=== PATIENT | male | born 1990 | race Caucasian/White ===

== ENCOUNTER 2016-06-02 16:41 | Inpatient (IN) | payer OTHER ==
[~2016-06-02] VITALS: Ht 167.6 cm; Wt 81.2 kg
[2016-06-02] MEDS ORDERED: HYDROMORPHONE 2 MG/ML VIAL. IV ONE ×2 (17:00→17:45)
[2016-06-02] MEDS ORDERED: ONDANSETRON PF 4 MG/2 ML VIAL. IV ONE (17:00)
[2016-06-02] MEDS ORDERED: CEFAZOLIN 1GM IVPB FOR OMNI 50 ML IV ONE ×2 (17:00→17:04)
[2016-06-02] MEDS ORDERED: DIPHTH,PERTUSS(ACELL),TET TOX 0.5 ML DISP.SYRIN. VAX IM ONE ×2 (17:00→17:04)
[2016-06-02] MEDS ORDERED: HYDROMORPHONE 2 MG/ML VIAL. ONE (17:04)
[2016-06-02] MEDS ORDERED: ONDANSETRON PF 4 MG/2 ML VIAL. ONE ×2 (17:04→20:21)
[2016-06-02] MEDS: IV NORMAL SALINE 1000ML BAG 1,000 ML IV SCH ×2 (17:35→23:57)
[2016-06-02] MEDS ORDERED: ONDANSETRON PF 4 MG/2 ML VIAL. IV PRN ×3 (17:45→22:30)
[2016-06-02 17:49] LABS: BASO % 1 % (0-3); CALCIUM 9.1 mg/dL (8.5-10.1); CREATININE 1.1 mg/dL (0.7-1.3); EOS % 1 % (0-3); GFR 79.7; HEMATOCRIT 45.2 % (39.0-53.0); HEMOGLOBIN 14.8 g/dL (13.0-17.5); LYMPH # 2.1 x10^3/uL (1.0-4.8); LYMPH % 24 % (24-48); MEAN CORPUSCULAR HEMOGLOBIN 28 pg (25-35); MEAN CORPUSCULAR HGB CONC 33 g/dL (31-37); MEAN CORPUSCULAR VOLUME 86 fL (79-100); MONO % 8 % (0-9); NEUT % 67 % (31-73); PLATELET COUNT 251 x10^3/uL (140-400); POTASSIUM 3.5 mmol/L (3.5-5.1); RED BLOOD COUNT 5.28 x10^6/uL (4.30-5.70); RED CELL DISTRIBUTION WIDTH 13.5 % (11.5-14.5)
[2016-06-02] MEDS ORDERED: IV RINGERS,LACTATED 1000ML 1,000 ML IV SCH (18:20)
--- NOTE | 2016-06-02 18:21 | PHYS DOC ---
Adult General Chief Complaint Chief Complaint: TRAUMA ACTIVATION HPI HPI Patient is a 26 year old gentleman who presents to the ER today as a trauma activation secondary to a significant laceration to his right pretibial region after being pinned up against the forklift and a silver-fork at work. Patient has no past mental history. History of hypertension diabetes liver longer kidney problems. Patient's tetanus status is not up-to-date. Patient reports last tetanus was greater than 10 years. She reports no other Komori pain secondary to this injury. She reports she tried a bleed after the fall and was unable to walk to his car. Patient reports that he feels like his lower extremities/foot is floppy. Patient reports poor control of motion to his foot. Patient's physical exam is significant for a large 20 cm laceration to the right pretibial region distally. The laceration extends from the medial aspect of his ankle to the mid tibial region. Laceration is deep. Bone is visualized. There is no obvious bony deformity noted. Patient does have what appears to be superficial muscle involvement. Patient is neurovascularly intact. Patient has excellent capillary refill. Patient's DP and PT are 2+. Patient does have flexion and extension of his foot. Patient's sensation is intact to light touch and pinprick. Patient has no tenderness to palpation to his knee with no tenderness in his lateral or medial aspect. There is no joint effusion to knee. X-ray reveals a comminuted fracture of his medial and lateral malleolus on the right. There is no fracture noted of the tibial shaft. A/P this is a 26-year-old gentleman who presents to the ER with an open fracture of his left ankle. Case was discussed with the trauma attending after trauma activation was initiated. Dr. Clay was was notified of the current plan and he is in agreement. The case was discussed with Dr. Hernandez who is on- call for us here at [place] for orthopedics and she is in agreement with the current regimen of the patient. Dr. Hernandez has agreed to assist us with further care of this patient. Dr. Hernandez will arrange for evaluation for irrigation and closure of the wound. She also evaluate him for his bimalleolar fracture. Was given 1 g Ancef IM as well as 2 doses of IV Dilaudid for pain management. Patient was given tetanus. Patient otherwise clinically and hemodynamically stable. Review of Systems Review of Systems Constitutional: Denies fever or chills [] Eyes: Denies change in visual acuity, redness, or eye pain [] HENT: Denies nasal congestion or sore throat [] Respiratory: Denies cough or shortness of breath [] Cardiovascular: No additional information not addressed in HPI [] GI: Denies abdominal pain, nausea, vomiting, bloody stools or diarrhea [] All other review systems are negative except as documented in the history of present illness. Current Medications Current Medications Current Medications Medications (Trade) Dose Ordered Sig/Christi Start Time Stop Time Status Last Admin Dose Admin Cefazolin Sodium (Ancef 1gm Ivpb For Omni) 50 ml @ 100 mls/hr 1X ONCE 06/02/16 17:00 06/02/16 17:29 DC 06/02/16 17:07 100 MLS/HR Diphtheria/ Tetanus/Acell Pertussis 0.5 ml 0.5 ml ONCE ONCE 06/02/16 17:00 06/02/16 17:06 DC 06/02/16 17:10 0.5 ML Fentanyl Citrate 50 mcg 50 mcg PRN Q1HR PRN 06/02/16 17:45 06/03/16 17:44 Hydromorphone HCl (Dilaudid) 1 mg 1X ONCE 06/02/16 17:45 06/02/16 17:46 DC 06/02/16 17:48 1 MG Ondansetron HCl (Zofran) 4 mg PRN Q8HRS PRN 06/02/16 17:45 06/03/16 17:44 Sodium Chloride (Iv Sodium Chloride 0.9% 1000ml Bag) 1,000 ml @ 125 mls/hr Q8H 06/02/16 17:35 06/03/16 17:34 Allergies Allergies Allergies Coded Allergies Type Severity Reaction Last Updated Verified No Known Drug Allergies 06/02/16 No Physical Exam Physical Exam Constitutional: Well developed, well nourished, no acute distress, non-toxic appearance. [] HENT: Normocephalic, atraumatic, bilateral external ears normal, oropharynx moist, no oral exudates, nose normal. [] Eyes: PERRLA, EOMI, conjunctiva normal, no discharge. [] Neck: Normal range of motion, no tenderness, supple, no stridor. [] Cardiovascular:Heart rate regular rhythm, no murmur [] Lungs & Thorax: Bilateral breath sounds clear to auscultation [] Abdomen: Bowel sounds normal, soft, no tenderness, no masses, no pulsatile masses. [] Skin: Warm, dry, no erythema, no rash. [] Back: No tenderness, no CVA tenderness. [] Extremities: See above Neurologic: See above Psychologic: Affect normal, judgement normal, mood normal. [] Current Patient Data Vital Signs Vital Signs Date Time Temp Pulse Resp B/P Pulse Ox O2 Delivery O2 Flow Rate FiO2 06/02/16 17:48 13 100 Room Air Lab Values Laboratory Tests Test 06/02/16 16:50 White Blood Count 9.0x10^3/uL (4.0-11.0) Red Blood Count 5.28x10^6/uL (4.30-5.70) Hemoglobin 14.8g/dL (13.0-17.5) Hematocrit 45.2% (39.0-53.0) Mean Corpuscular Volume 86fL (79-100) Mean Corpuscular Hemoglobin 28pg (25-35) Mean Corpuscular Hemoglobin Concent 33g/dL (31-37) Red Cell Distribution Width 13.5% (11.5-14.5) Platelet Count 251x10^3/uL (140-400) Neutrophils (%) (Auto) 67% (31-73) Lymphocytes (%) (Auto) 24% (24-48) Monocytes (%) (Auto) 8% (0-9) Eosinophils (%) (Auto) 1% (0-3) Basophils (%) (Auto) 1% (0-3) Neutrophils # (Auto) 6.0x10^3uL (1.8-7.7) Lymphocytes # (Auto) 2.1x10^3/uL (1.0-4.8) Monocytes # (Auto) 0.7x10^3/uL (0.0-1.1) Eosinophils # (Auto) 0.1x10^3/uL (0.0-0.7) Basophils # (Auto) 0.0x10^3/uL (0.0-0.2) Sodium Level 144mmol/L (136-145) Potassium Level 3.5mmol/L (3.5-5.1) Chloride Level 105mmol/L (98-107) Carbon Dioxide Level 27mmol/L (21-32) Anion Gap 12 (6-14) Blood Urea Nitrogen 16mg/dL (8-26) Creatinine 1.1mg/dL (0.7-1.3) Estimated GFR (Cockcroft-Gault) 79.7 Glucose Level 97mg/dL (70-99) Calcium Level 9.1mg/dL (8.5-10.1) Laboratory Tests 06/02/16 16:50 Laboratory Tests 06/02/16 16:50 EKG EKG [] Radiology/Procedures Radiology/Procedures Critical care time of 35 minutes reutilized and treatment and management of this patient's open fracture. There is concern for possible loss of limb given the mechanism of injury.\ Course & Med Decision Making Course & Med Decision Making Pertinent Labs and Imaging studies reviewed. (See chart for details) [] Dragon Disclaimer Dragon Disclaimer This electronic medical record was generated, in whole or in part, using a voice recognition dictation system. Departure Departure Impression: Primary Impression: Open fracture Disposition: 09 ADMITTED INPATIENT Admitting Physician: Gertrudis Daniel Condition: GUARDED Referrals: NO PCP (PCP) INDIGO BAZZI MD Jun 02, 2016 18:21
[2016-06-02] MEDS ORDERED: MORPHINE SULFATE 2 MG/ML DISP.SYRIN. IV PRN (18:30)
[2016-06-02] MEDS ORDERED: HYDROMORPHONE 2 MG/ML VIAL. IV PRN ×2 (18:30→22:30)
[2016-06-02] MEDS ORDERED: LIDOCAINE 1% 1 ML SYRINGE. ID PRN (18:30)
[2016-06-02] MEDS ORDERED: PROCHLORPERAZINE 10 MG/2 ML VIAL. IV PRN (18:30)
[2016-06-02] MEDS ORDERED: FENTANYL PF 100 MCG/2 ML VIAL. IV PRN ×2 (18:30→22:30)
[2016-06-02] MEDS ORDERED: BUPIVACAINE-EPI 0.25%-1:200000 50 ML VIAL. ONE (18:36)
[2016-06-02] MEDS ORDERED: FENTANYL PF 250 MCG/5 ML VIAL. ONE (18:50)
[2016-06-02] MEDS ORDERED: PROPOFOL 20 ML IV ONE (18:59)
[2016-06-02] MEDS ORDERED: CEFAZOLIN 1GM IVPB FOR OMNI. IV ONE (19:00)
[2016-06-02] MEDS ORDERED: LIDOCAINE 2% 100 MG/5 ML DISP.SYRIN. ONE (19:00)
--- NOTE | 2016-06-02 19:02 | PDOC2 ---
CONSULT Date of Consult Date of Consult DATE: 06/02/16 TIME: 18:50 Reason for Consult Reason for Consult: right tibia laceration and ankle fracture Referring Physician Referring Physician: ER Identification/Chief Complaint Chief Complaint R leg pain Source Source: Chart review, Patient History of Present Illness Reason for Visit: The patient is a 26 year old male who presents today with a chief complaint of right leg pain after he was injured on the job. He states that he hopped off of a forklift and somehow his leg was trapped and crushed. He is neuro intact, and has not had anything to eat or drink since the incident. He was given antibiotics and a tetanus update in the ER. He smokes 1/2 pack per day. Past Medical History Past Medical History no pertinent history per patient Family History Family History no pertinent family history per patient Social History <1 pack per day ALCOHOL: social Drugs: None Lives: with Family Domestic Violence: Neg Current Problem List Problem List Problems Medical Problems: (1) Open fracture Status: Acute Current Medications Current Medications Current Medications Diphtheria/ Tetanus/Acell Pertussis 0.5 ml 0.5 ml ONCE ONCE VAX IM Last administered on 06/02/16 17:10; Start 06/02/16 at 17:00; Stop 06/02/16 at 17:06 ; Status DC Cefazolin Sodium (Ancef 1gm Ivpb For Omni) 50 ml @ 100 mls/hr 1X ONCE IV Last administered on 06/02/16 17:07; Start 06/02/16 at 17:00; Stop 06/02/16 at 17:29; Status DC Hydromorphone HCl (Dilaudid) 0.5 mg 1X ONCE IV Last administered on 06/02/16 17:08; Start 06/02/16 at 17:00; Stop 06/02/16 at 17:06; Status DC Ondansetron HCl (Zofran) 4 mg 1X ONCE IV Last administered on 06/02/16 17:08 ; Start 06/02/16 at 17:00; Stop 06/02/16 at 17:06; Status DC Ondansetron HCl (Zofran) 4 mg PRN Q8HRS PRN IV NAUSEA/VOMITING; Start 06/02/16 at 17:45; Stop 06/03/16 at 17:44 Fentanyl Citrate 50 mcg 50 mcg PRN Q1HR PRN IV PAIN; Start 06/02/16 at 17:45; Stop 06/03/16 at 17:44 Sodium Chloride (Iv Sodium Chloride 0.9% 1000ml Bag) 1,000 ml @ 125 mls/hr Q8H IV ; Start 06/02/16 at 17:35; Stop 06/03/16 at 17:34 Hydromorphone HCl (Dilaudid) 1 mg 1X ONCE IV Last administered on 06/02/16t 17 :48; Start 06/02/16 at 17:45; Stop 06/02/16 at 17:46; Status DC Ondansetron HCl (Zofran) 4 mg PRN Q6HRS PRN IV Nausea; Start 06/02/16 at 18:30 ; Stop 06/03/16 at 18:29 Fentanyl Citrate (Fentanyl 2ml Vial) 25 mcg PRN Q5MIN PRN IV MILD PAIN; Start 06/02/16 at 18:30; Stop 06/03/16 at 18:29 Fentanyl Citrate (Fentanyl 2ml Vial) 50 mcg PRN Q5MIN PRN IV MODERATE PAIN; Start 06/02/16 at 18:30; Stop 06/03/16 at 18:29 Morphine Sulfate 1 mg 1 mg PRN Q10MIN PRN IV SEVERE PAIN; Start 06/02/16 at 18: 30; Stop 06/03/16 at 18:29 Lactated Ringer's (Iv Lactated Ringers) 1,000 ml @ 30 mls/hr Q24H IV ; Start at 18:20; Stop 06/03/16 at 06:19 Lidocaine HCl 2 ml 1X PRN PRN ID IV START; Start 06/02/16 at 18:30; Stop at 18:29 Hydromorphone HCl (Dilaudid) 0.5 mg PRN Q10MIN PRN IV SEV PAIN,Second choice; Start 06/02/16 at 18:30; Stop 06/03/16 at 18:29 Prochlorperazine Edisylate (Compazine) 5 mg PACU PRN PRN IV NAUSEA; Start 06/02 at 18:30; Stop 06/03/16 at 18:29 Allergies Allergies: Coded Allergies: No Known Drug Allergies (Unverified , 06/02/16) ROS General: No: Appetite, Chills, Fatigue, Malaise, Night Sweats, Other PSYCHOLOGICAL ROS: No: Anxiety, Behavioral Disorder, Concentration difficultie , Decreased libido, Depression, Disorientation, Hallucinations, Hostility, Irritablity, Memory difficulties, Mood Swings, Obsessive thoughts, Other, Physical abuse, Sexual abuse, Sleep disturbances, Suicidal ideation Eyes: No Blurry vision, No Decreased vision, No Double vision, No Dry eyes, No Excessive tearing, No Eye Pain, No Itchy Eyes, No Loss of vision, No Other, No Photophobia, No Scotomata, No Uses contacts, No Uses glasses HEENT: No: Epistaxis, Heacaches, Hearing change, Nasal congestion, Nasal discharge, Oral lesions, Other, Sinus pain, Sneezing, Snoring, Sore Throat, Tinnitus, Vertigo, Visual Changes, Vocal changes ALLERGY AND IMMUNOLOGY: No: Hives, Insect Bite Sensitivity, Itchy/Watery Eyes, Nasal Congestion, Other, Post Nasal Drip, Seasonal Allergies Hematological and Lymphatic: No: Bleeding Problems, Blood Clots, Blood Transfusions, Brusing, Night Sweats, Other, Pallor, Swollen Lymph Nodes ENDOCRINE: No: Breast Changes, Galactorrhea, Hair Pattern Changes, Hot Flashes , Malaise/lethargy, Mood Swings, Other, Palpitations, Polydipsia/polyuria, Skin Changes, Temperature Intolerance, Unexpected Weight Changes Breast: No New/Changing Breast Lumps, No Nipple changes, No Nipple discharge, No Other Respiratory: No: Cough, Hemoptysis, Orthopnea, Other, Pleuritic Pain, SOB with excertion, Shortness of breath, Sputum Changes, Stridor, Tachypnea, Wheezing Musculoskeletal: Yes Gait Disturbance, Yes Joint Pain, Yes Muscle Pain, Yes Pain In: (right lower extremity), No Joint Stiffness, No Joint Swelling, No Muscular Weakness, No Other, No Swelling In: Physical Exam Physical Exam General Physical Exam: In no apparent distress. The patient appears their stated age and is oriented to person, place, and time. He presents with his significant other today. RIGHT LOWR EXTREMITY: dressing intact with sanginous drainage. Minimal swelling about the foot. 2+ DP/Post tib pulse. +Ehl/fhl. ta/ posterior tibialis. General: Alert, Oriented X3, Cooperative, No acute distress HEENT: Atraumatic, EOMI, Mucous membr. moist/pink Lungs: Normal air movement Extremities: No cyanosis, Normal pulses Psych/Mental Status: Mental status NL Vitals VITALS Vital Signs Date Time Temp Pulse Resp B/P Pulse Ox O2 Delivery O2 Flow Rate FiO2 06/02/16 17:48 13 100 Room Air Labs Labs Laboratory Tests Test 06/02/16 16:50 White Blood Count 9.0x10^3/uL (4.0-11.0) Red Blood Count 5.28x10^6/uL (4.30-5.70) Hemoglobin 14.8g/dL (13.0-17.5) Hematocrit 45.2% (39.0-53.0) Mean Corpuscular Volume 86fL (79-100) Mean Corpuscular Hemoglobin 28pg (25-35) Mean Corpuscular Hemoglobin Concent 33g/dL (31-37) Red Cell Distribution Width 13.5% (11.5-14.5) Platelet Count 251x10^3/uL (140-400) Neutrophils (%) (Auto) 67% (31-73) Lymphocytes (%) (Auto) 24% (24-48) Monocytes (%) (Auto) 8% (0-9) Eosinophils (%) (Auto) 1% (0-3) Basophils (%) (Auto) 1% (0-3) Neutrophils # (Auto) 6.0x10^3uL (1.8-7.7) Lymphocytes # (Auto) 2.1x10^3/uL (1.0-4.8) Monocytes # (Auto) 0.7x10^3/uL (0.0-1.1) Eosinophils # (Auto) 0.1x10^3/uL (0.0-0.7) Basophils # (Auto) 0.0x10^3/uL (0.0-0.2) Sodium Level 144mmol/L (136-145) Potassium Level 3.5mmol/L (3.5-5.1) Chloride Level 105mmol/L (98-107) Carbon Dioxide Level 27mmol/L (21-32) Anion Gap 12 (6-14) Blood Urea Nitrogen 16mg/dL (8-26) Creatinine 1.1mg/dL (0.7-1.3) Estimated GFR (Cockcroft-Gault) 79.7 Glucose Level 97mg/dL (70-99) Calcium Level 9.1mg/dL (8.5-10.1) Laboratory Tests Test 06/02/16 16:50 White Blood Count 9.0x10^3/uL (4.0-11.0) Red Blood Count 5.28x10^6/uL (4.30-5.70) Hemoglobin 14.8g/dL (13.0-17.5) Hematocrit 45.2% (39.0-53.0) Mean Corpuscular Volume 86fL (79-100) Mean Corpuscular Hemoglobin 28pg (25-35) Mean Corpuscular Hemoglobin Concent 33g/dL (31-37) Red Cell Distribution Width 13.5% (11.5-14.5) Platelet Count 251x10^3/uL (140-400) Neutrophils (%) (Auto) 67% (31-73) Lymphocytes (%) (Auto) 24% (24-48) Monocytes (%) (Auto) 8% (0-9) Eosinophils (%) (Auto) 1% (0-3) Basophils (%) (Auto) 1% (0-3) Neutrophils # (Auto) 6.0x10^3uL (1.8-7.7) Lymphocytes # (Auto) 2.1x10^3/uL (1.0-4.8) Monocytes # (Auto) 0.7x10^3/uL (0.0-1.1) Eosinophils # (Auto) 0.1x10^3/uL (0.0-0.7) Basophils # (Auto) 0.0x10^3/uL (0.0-0.2) Sodium Level 144mmol/L (136-145) Potassium Level 3.5mmol/L (3.5-5.1) Chloride Level 105mmol/L (98-107) Carbon Dioxide Level 27mmol/L (21-32) Anion Gap 12 (6-14) Blood Urea Nitrogen 16mg/dL (8-26) Creatinine 1.1mg/dL (0.7-1.3) Estimated GFR (Cockcroft-Gault) 79.7 Glucose Level 97mg/dL (70-99) Calcium Level 9.1mg/dL (8.5-10.1) Images Images Xrays of the right tibia reveal subcutaneous gas consistent with soft tissue disruption, and a transverse fibula and medial malleolus fracture. Assessment/Plan Assessment/Plan The patient is a 26 year old male with a right anterior tibial laceration and transverse bimalleolar ankle fracture. The plan is for urgent I & D, OPEN REDUCTION INTERNAL FIXATION if possible. HE has received abx and tetanus. We will continue abx for 24 hours after he is closed. ELENA ELIZONDO MD Jun 02, 2016 19:01
[2016-06-02] MEDS ORDERED: DEXAMETHASONE SOD PHOS 20 MG/5 ML VIAL. ONE (20:21)
[2016-06-02] MEDS ORDERED: SEVOFLURANE 61 TO 120 MINUTES. IH ONE (20:44)
[2016-06-02] MEDS: FENTANYL PF 100 MCG/2 ML VIAL. IV PRN ×4 (22:26→22:48)
[2016-06-02] MEDS: IV 1/2 NORMAL SALINE 1,000 ML IV SCH (22:29)
[2016-06-02] MEDS ORDERED: POLYETHYLENE GLYCOL 3350 17 GM PACKET. PO PRN (22:30)
[2016-06-02] MEDS ORDERED: TRAMADOL 50 MG TABLET. PO PRN (22:30)
[2016-06-02] MEDS ORDERED: DEXTROSE 50% 25 GM / 50ML DISP.SYRIN. IV PRN (22:30)
[2016-06-02] MEDS ORDERED: OXYCODONE IR 5 MG TABLET. PO PRN (22:30)
--- NOTE | 2016-06-02 22:33 | ACF ---
Admission Forms Criteria MUSCULOSKELETAL DISEASE GRG Clinical Indications for Admission to Inpatient Care (Place 'X' for any and all applicable criteria): Hospital admission is needed for appropriate care of the patient because of ANY ONE of the following: [X]I. Fracture, dislocation, or other musculoskeletal injury requiring inpatient care(medical) as indicated by ANY ONE of the following(4)(5)(6)(7) [ ]a) Vertebral fracture requiring observation for instability or neurologic compromise (8) [ ]b) Compartment syndrome (proven or cannot be ruled out during observation level of care) (9) [ ]c) Limb-threatening injury [X]d) Major injury requiring inpatient stabilization such as traction initiation or external fixation before internal fixation or closure of complex or open fracture [ ]e) Major injury requiring inpatient treatment after emergency or observation level care (as appropriate) [ ]f) Severe pain requiring acute inpatient management [ ]II. Newly diagnosed or suspected bone, joint, or orthopedic device infection (e.g., osteomyelitis, septic arthritis) needing ANY ONE of the following(1)(2)(3) [ ]a) IV antibiotics that cannot be initiated in other than inpatient setting (e.g., patient too unstable or home infusion not available) [ ]b) Device removal or replacement [ ]c) Bone or soft tissue debridement [ ]d) Joint drainage (drain placement or repetitive aspirations) [ ]III. Severe rheumatologic disease (e.g., systemic lupus erythematosus, rheumatoid arthritis) with complications or comorbidities (Also use Optimal Recovery Care Criteria or General Recovery Criteria as appropriate on the basis of predominant condition), including ANY ONE of the following(10 )(11)(12)(13) [ ]a) Severe infection (e.g., HISTORICAL SOCIETY DIRECTOR infection, sepsis) (14) [ ]b) Respiratory complications, including ANY ONE of the following: [ ]i) Pleural effusion with respiratory compromise [ ]ii) Pulmonary hypertension with congestive failure [ ]iii) Respiratory failure [ ]iv) Pulmonary hemorrhage (15) [ ]c) Hematologic disease, including ANY ONE of the following: [ ]i) Coagulopathy with bleeding [ ]ii) Thrombosis with hypercoagulable state [ ]iii) Thrombotic thrombocytopenic purpura [ ]d) Cerebritis with seizures, psychosis, or other severe abnormalities [ ]e) Vertebral destruction with monitoring needed for cervical myelopathy& possible respiratory compromise [ ]f) Exacerbation that requires inpatient treatment (e.g., intravenous immunosuppression) (16) [ ]g) Acute renal failure [ ]IV. Severe vasculitis with complications or comorbidities (Also use Optimal Recovery Care Criteria or General Recovery Criteria as appropriate on the basis of predominant condition), including ANY ONE of the following(11)(12)(17)(18)(19)(20) [ ]a) HISTORICAL SOCIETY DIRECTOR vasculitis with seizures, psychosis, or other severe abnormalities (22) [ ]b) Renal failure (16) [ ]c) Pulmonary hemorrhage (15) [ ]d) Cerebral infarction [ ]e) Gastrointestinal ischemia [ ]f) Gangrene or threatened amputation [ ]g) Exacerbation that requires inpatient treatment (e.g., intravenous immunosuppression) (19)(21) [ ]V. Severe myopathy as indicated by ANY ONE of the following (28)(29) [ ]a) New onset of airway compromise or inability to swallow [ ]b) Respiratory deterioration with observation needed for impending respiratory failure [ ]c) Exacerbation that requires inpatient treatment (e.g., intravenous immunosuppression) [ ]. Severe gout (crystal arthropathy) as indicated by ANY ONE of the following (23)(24) [ ]a) Severe pain requiring acute inpatient management [ ]b) Exacerbation that requires inpatient treatment (e.g., intravenous treatment) [ ]VII.Rhabdomyolysis and ANY ONE of the following (25)(26)(27) [ ]a) Acute renal failure [ ]b) Need for intravenous hydration after emergency or observation level care (as appropriate) [ ]c) Inability to maintain oral hydration [ ]d) Change in mental status [ ]e) Electrolyte abnormality that remains after emergency or observation level care (as appropriate) [ ]VIII Post amputation complication, as indicated by ANY ONE of the following [ ]a) Infection [ ]b) Dehiscence [ ]c) Myodesis failure [ ]IX. Severe pain requiring acute inpatient management as indicated by ALL of the following (30)(31)(32) [ ]a) Continuous or frequent (e.g., every 2 to 4 hrs) parenteral analgesics required [A] [ ]b) Rapid improvement expected from treatment or acute intervention ( e.g., surgery, anesthesia procedure[B] [ ]X. Musculoskeletal Disease and ALL of the following: [ ]a) Symptom or finding for which emergency and observation care have failed or are not considered appropriate (Use General Criteria: Observation Care as appropriate) [ ]b) Presence of ANY ONE of the following [ ]i) A General Admission Criteria [ ]ii) A Pediatric General Admission Criteria The original [facility] content created by [facility] has been revised. The portions of the content which have been revised are identified through the use of italic text or in bold, and [facility] has neither reviewed nor approved the modified material. All other unmodified content is copyright [facility]. Please see references footnoted in the original [facility] edition 2016 Admission Criteria Met?: Yes NEISHA EVANS Jun 02, 2016 22:33
--- NOTE | 2016-06-02 22:42 | PDOC ---
BRIEF OPERATIVE NOTE Date: Jun 02, 2016 Pre-Op Diagnosis Right trimalleolar ankle fracture, right leg laceration Post-Op Diagnosis same Procedure Performed Right irrigation and debridement of laceration, complex closure of three layers of tissue. ORIF trimalleolar ankle fracture without manipulation of the posterior malleolus. Surgeon Elena Elizondo MD Chemistry Laboratory Technician none Anesthesia Type: General Blood Loss 75 cc Findings 12 inch laceration on the anteromedial surface of the tibia down to bone, saphenous vein and nerve were intact and visualized. transverse fracture of the lateral malleolus with some comminution, oblique fracture of the medial malleolus with comminution. mildly displaced posterior malleolus fracture. Complications none Additional Remarks Pt is to be nwb on his rle, in a plaster splint. nvi post-op. continue to monitor for nv status and compartment syndrome. pain control dvt ppx antibiotics for 24 hours will fu 7-10 days in office for suture removal ELENA ELIZONDO MD Jun 02, 2016 22:42
[2016-06-02] MEDS ORDERED: NICOTINE POLACRILEX 2MG GUM PACKAGE of 12. BC PRN (22:45)
[2016-06-02] MEDS ORDERED: NICOTINE 14MG PATCH. TD PRN (22:45)
[2016-06-02] MEDS ORDERED: POTASSIUM CHLORIDE 20 MEQ TABLET.ER. PO ONE (23:00)
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
[2016-06-02] MEDS ORDERED: DOCUSATE SODIUM 100 MG CAPSULE PO PRN (23:15)
[2016-06-02 23:30] VITALS: BP 116/64
[2016-06-02 23:45] VITALS: BP 115/72
[2016-06-02] MEDS: CEFAZOLIN SODIUM 1 GM in IV NORMAL SALINE 50ML 50 ML IV SCH (23:52)
[2016-06-03] VITALS (7 sets, daily range): BP systolic 100–116; BP diastolic 49–68
[2016-06-03] MEDS: FENTANYL PF 100 MCG/2 ML VIAL. IV PRN ×2 (00:18→09:31)
[2016-06-03] MEDS ORDERED: DEXT20CA7 PO (01:29)
[2016-06-03] MEDS: KETOROLAC 15 MG/ML VIAL. IV PRN ×2 (02:43→14:29)
[2016-06-03] MEDS: OXYCODONE IR 5 MG TABLET. PO PRN ×3 (04:48→17:20)
[2016-06-03] MEDS: CEFAZOLIN SODIUM 1 GM in IV NORMAL SALINE 50ML 50 ML IV SCH ×2 (04:51→11:51)
[2016-06-03] MEDS ORDERED: MAGNESIUM HYDROXIDE 2,400 MG/30 ML ORAL.SUSP. PO PRN (06:00)
--- NOTE | 2016-06-03 08:35 | RAD ---
Right ankle, 3 views, 06/02/2016: History: Injury There are comminuted fractures of the medial and lateral malleoli. There is very little displacement at those fracture sites. There is moderate streaky gas in the soft tissues about the ankle and lower leg compatible with an open wound. No ankle dislocation is evident. Portable right tibia and fibula, 2 views, 06/02/2016: No additional fracture of the proximal lower leg is evident. Right foot, 3 views, 06/02/2016: No additional fracture or dislocation is identified. IMPRESSION: Acute comminuted fractures of the medial and lateral malleoli.
[2016-06-03] MEDS ORDERED: DOCUSATE SODIUM 100 MG CAPSULE PO SCH (09:00)
[2016-06-03] MEDS ORDERED: CHOLECALCIFEROL (VITAMIN D3) 1,000 UNIT TABLET PO SCH (09:00)
[2016-06-03] MEDS ORDERED: MULTIVITAMIN with MINERAL TABLET. PO SCH (09:00)
[2016-06-03] MEDS ORDERED: SENNOSIDES/DOCUSATE 8.6/50MG TABLET. PO SCH (09:00)
[2016-06-03] MEDS ORDERED: POLYETHYLENE GLYCOL 3350 17 GM PACKET. PO SCH (09:00)
[2016-06-03] MEDS: IV NORMAL SALINE 1000ML BAG 1,000 ML IV SCH (09:28)
[2016-06-03] MEDS: ACETAMINOPHEN 500 MG TABLET PO SCH ×2 (09:31→14:29)
[2016-06-03] MEDS: FERROUS SULFATE 325 MG TABLET PO SCH ×2 (09:32→17:19)
[2016-06-03] MEDS ORDERED: OXYC-323 PO (10:36)
[2016-06-03] MEDS ORDERED: DOCU-27 PO (10:36)
[2016-06-03] MEDS ORDERED: CHOLECALCIFEROL (VITAMIN D3) 5,000 UNIT CAPSULE PO SCH (11:00)
[2016-06-03] MEDS: IV 1/2 NORMAL SALINE 1,000 ML IV SCH (11:49)
--- NOTE | 2016-06-03 12:59 | PDOC ---
PROGRESS NOTES Subjective Subjective Problems overnight: No acute issues. Saw the patient this am and he stated his pain was relatively well controlled on oral pain meds. wondering when he can go home. He was complaining of the splint being too tight around his ankle so I unwrapped it and loosened. He has since worked with therapy with no problems. He is receiving antibiotics. He is keeping his leg elevated. Objective Vital Signs Vital Signs Date Time Temp Pulse Resp B/P Pulse Ox O2 Delivery O2 Flow Rate FiO2 06/03/16 11:50 18 Room Air 06/03/16 11:00 98.0 68 109/57 99 98.0 06/02/16 22:31 10.0 Physical Exam RLE: in splint, elevated on a pillow. toes cool to the touch, brisk cap refill. no numbness, tingling, or parasthesias. no pain with passive stretch. Labs Laboratory Tests Test 06/02/16 16:50 White Blood Count 9.0x10^3/uL (4.0-11.0) Red Blood Count 5.28x10^6/uL (4.30-5.70) Hemoglobin 14.8g/dL (13.0-17.5) Hematocrit 45.2% (39.0-53.0) Mean Corpuscular Volume 86fL (79-100) Mean Corpuscular Hemoglobin 28pg (25-35) Mean Corpuscular Hemoglobin Concent 33g/dL (31-37) Red Cell Distribution Width 13.5% (11.5-14.5) Platelet Count 251x10^3/uL (140-400) Neutrophils (%) (Auto) 67% (31-73) Lymphocytes (%) (Auto) 24% (24-48) Monocytes (%) (Auto) 8% (0-9) Eosinophils (%) (Auto) 1% (0-3) Basophils (%) (Auto) 1% (0-3) Neutrophils # (Auto) 6.0x10^3uL (1.8-7.7) Lymphocytes # (Auto) 2.1x10^3/uL (1.0-4.8) Monocytes # (Auto) 0.7x10^3/uL (0.0-1.1) Eosinophils # (Auto) 0.1x10^3/uL (0.0-0.7) Basophils # (Auto) 0.0x10^3/uL (0.0-0.2) Sodium Level 144mmol/L (136-145) Potassium Level 3.5mmol/L (3.5-5.1) Chloride Level 105mmol/L (98-107) Carbon Dioxide Level 27mmol/L (21-32) Anion Gap 12 (6-14) Blood Urea Nitrogen 16mg/dL (8-26) Creatinine 1.1mg/dL (0.7-1.3) Estimated GFR (Cockcroft-Gault) 79.7 Glucose Level 97mg/dL (70-99) Calcium Level 9.1mg/dL (8.5-10.1) Laboratory Tests Test 06/02/16 16:50 White Blood Count 9.0x10^3/uL (4.0-11.0) Red Blood Count 5.28x10^6/uL (4.30-5.70) Hemoglobin 14.8g/dL (13.0-17.5) Hematocrit 45.2% (39.0-53.0) Mean Corpuscular Volume 86fL (79-100) Mean Corpuscular Hemoglobin 28pg (25-35) Mean Corpuscular Hemoglobin Concent 33g/dL (31-37) Red Cell Distribution Width 13.5% (11.5-14.5) Platelet Count 251x10^3/uL (140-400) Neutrophils (%) (Auto) 67% (31-73) Lymphocytes (%) (Auto) 24% (24-48) Monocytes (%) (Auto) 8% (0-9) Eosinophils (%) (Auto) 1% (0-3) Basophils (%) (Auto) 1% (0-3) Neutrophils # (Auto) 6.0x10^3uL (1.8-7.7) Lymphocytes # (Auto) 2.1x10^3/uL (1.0-4.8) Monocytes # (Auto) 0.7x10^3/uL (0.0-1.1) Eosinophils # (Auto) 0.1x10^3/uL (0.0-0.7) Basophils # (Auto) 0.0x10^3/uL (0.0-0.2) Sodium Level 144mmol/L (136-145) Potassium Level 3.5mmol/L (3.5-5.1) Chloride Level 105mmol/L (98-107) Carbon Dioxide Level 27mmol/L (21-32) Anion Gap 12 (6-14) Blood Urea Nitrogen 16mg/dL (8-26) Creatinine 1.1mg/dL (0.7-1.3) Estimated GFR (Cockcroft-Gault) 79.7 Glucose Level 97mg/dL (70-99) Calcium Level 9.1mg/dL (8.5-10.1) Imaging Xrays of the right ankle, intraop reveal near anatomic alignment of his bimalleolar ankle fracture. Assessment Assessment POD# 1 S/P I &D right ankle fracture and laceration debridement Problems: (1) Open fracture Plan Plan of Care -The patient is receiving 24 hours of IV antibiotics per open fracture protocol. He will be done with those at 10 pm this evening. -He will need to go on 325 mg of ASA EC daily for dvt ppx while immoblized -NWB on the RLE -He is to keep the leg elevated as much as possible with ice. -He was given return to care instructions for signs and symptoms of infection, compartment syndrome, Dvt, or PE. -He was given pain medication and stool softner. ELENA ELIZONDO MD Jun 03, 2016 12:59
[2016-06-03] MEDS ORDERED: OXYC10TA PO (13:02)
--- NOTE | 2016-06-03 15:41 | PDOC3 ---
Discharge Summary Visit Information Date of Admission: Jun 02, 2016 Date of Discharge: Jun 03, 2016 Admitting Diagnosis: ankle fracture Final Diagnosis right ankle fracture, open w/ laceration crush injury at work with forklift, ongoing pain right ankle and foot, s/p hardware placed tobaccoism, plans cessation Problems Medical Problems: (1) Open fracture Status: Acute Brief Hospital Course Allergies Allergies Coded Allergies Type Severity Reaction Last Updated Verified No Known Drug Allergies 06/02/16 No Vital Signs Vital Signs Date Time Temp Pulse Resp B/P Pulse Ox O2 Delivery O2 Flow Rate FiO2 06/03/16 13:00 16 Room Air 06/03/16 11:00 98.0 68 109/57 99 98.0 06/02/16 22:31 10.0 Lab Results Laboratory Tests Test 06/02/16 16:50 White Blood Count 9.0x10^3/uL (4.0-11.0) Red Blood Count 5.28x10^6/uL (4.30-5.70) Hemoglobin 14.8g/dL (13.0-17.5) Hematocrit 45.2% (39.0-53.0) Mean Corpuscular Volume 86fL (79-100) Mean Corpuscular Hemoglobin 28pg (25-35) Mean Corpuscular Hemoglobin Concent 33g/dL (31-37) Red Cell Distribution Width 13.5% (11.5-14.5) Platelet Count 251x10^3/uL (140-400) Neutrophils (%) (Auto) 67% (31-73) Lymphocytes (%) (Auto) 24% (24-48) Monocytes (%) (Auto) 8% (0-9) Eosinophils (%) (Auto) 1% (0-3) Basophils (%) (Auto) 1% (0-3) Neutrophils # (Auto) 6.0x10^3uL (1.8-7.7) Lymphocytes # (Auto) 2.1x10^3/uL (1.0-4.8) Monocytes # (Auto) 0.7x10^3/uL (0.0-1.1) Eosinophils # (Auto) 0.1x10^3/uL (0.0-0.7) Basophils # (Auto) 0.0x10^3/uL (0.0-0.2) Sodium Level 144mmol/L (136-145) Potassium Level 3.5mmol/L (3.5-5.1) Chloride Level 105mmol/L (98-107) Carbon Dioxide Level 27mmol/L (21-32) Anion Gap 12 (6-14) Blood Urea Nitrogen 16mg/dL (8-26) Creatinine 1.1mg/dL (0.7-1.3) Estimated GFR (Cockcroft-Gault) 79.7 Glucose Level 97mg/dL (70-99) Calcium Level 9.1mg/dL (8.5-10.1) Laboratory Tests Test 06/02/16 16:50 White Blood Count 9.0x10^3/uL (4.0-11.0) Red Blood Count 5.28x10^6/uL (4.30-5.70) Hemoglobin 14.8g/dL (13.0-17.5) Hematocrit 45.2% (39.0-53.0) Mean Corpuscular Volume 86fL (79-100) Mean Corpuscular Hemoglobin 28pg (25-35) Mean Corpuscular Hemoglobin Concent 33g/dL (31-37) Red Cell Distribution Width 13.5% (11.5-14.5) Platelet Count 251x10^3/uL (140-400) Neutrophils (%) (Auto) 67% (31-73) Lymphocytes (%) (Auto) 24% (24-48) Monocytes (%) (Auto) 8% (0-9) Eosinophils (%) (Auto) 1% (0-3) Basophils (%) (Auto) 1% (0-3) Neutrophils # (Auto) 6.0x10^3uL (1.8-7.7) Lymphocytes # (Auto) 2.1x10^3/uL (1.0-4.8) Monocytes # (Auto) 0.7x10^3/uL (0.0-1.1) Eosinophils # (Auto) 0.1x10^3/uL (0.0-0.7) Basophils # (Auto) 0.0x10^3/uL (0.0-0.2) Sodium Level 144mmol/L (136-145) Potassium Level 3.5mmol/L (3.5-5.1) Chloride Level 105mmol/L (98-107) Carbon Dioxide Level 27mmol/L (21-32) Anion Gap 12 (6-14) Blood Urea Nitrogen 16mg/dL (8-26) Creatinine 1.1mg/dL (0.7-1.3) Estimated GFR (Cockcroft-Gault) 79.7 Glucose Level 97mg/dL (70-99) Calcium Level 9.1mg/dL (8.5-10.1) Brief Hospital Course Mr. 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 Dr[address] Mathew, pt able to maneuver well with crutches, decent pain control 24 hours IV abx will f/u ortho clinic Discharge Information Condition at Discharge: Improved Follow Up: Weeks (ortho) Disposition/Orders: D/C to Home Scheduled Dextroamphetamine/Amphetamine (Adderall Xr 20 Mg Capsule) 20 MG PO DAILY ( Reported) Scheduled PRN Oxycodone Hcl (Oxycodone Hcl) 1 TAB PO Q4-6HRS PRN PRN PAIN Patient Instructions Patient Instructions 90 10/325 percocets written by ortho venkata randall, time > 30 min SANCHO LLANOS MD Jun 03, 2016 15:41
[2016-06-03] MEDS ORDERED: BISACODYL 10 MG SUPP.RECT PR PRN (16:00)
[2016-06-03] MEDS ORDERED: ASPI325T11 PO (16:23)
[2016-06-03] MEDS ORDERED: CEFAZOLIN SODIUM 1 GM in IV NORMAL SALINE 50ML 50 ML IV ONE (17:00)
[2016-06-03] MEDS ORDERED: CEFAZOLIN 1GM IVPB FOR OMNI 50 ML IV ONE (17:00)
[2016-06-04] MEDS ORDERED: ENOXAPARIN 40 MG/0.4 ML DISP.SYRIN. SQ SCH (09:00)
--- NOTE | 2016-06-13 15:00 | PDOC4 ---
Operative Note Operative Note DATE OF OPERATION: 06/02/2016 PREOPERATIVE DIAGNOSIS: 1. Open Trimalleolar fracture right ankle ICD10: S82.851B 2. Complex laceration of the anterior tibia POSTOPERATIVE DIAGNOSIS: same OPERATION PERFORMED: 3. Open reduction and internal fixation of left medial malleolus and lateral malleolus with interfragmentary screws; without~ posterior malleolus fixation. CPT 86198 4. Debridement of open fracture, CPT 31809 5. Wound exploration and debridement of a complex laceration on the right leg , CPT 30731 SURGEON: Elena Elizondo MD ASSISTANT FRONT END MANAGER: none ANESTHESIA: General ESTIMATED BLOOD LOSS: 75 cc IMPLANTS: Tereza Variax 7 hole distal fibula locking plate, 2 x 4.0 mm cannulated screws, 5 hole Medial tibia locking plate Findings: 12 inch laceration on the anteromedial surface of the tibia down to bone, saphenous vein and nerve were intact and visualized. There was a transverse fracture of the lateral malleolus with some comminution, and an oblique fracture of the medial malleolus with comminution. There was a mildly displaced posterior malleolus fracture consisting of less than 25% of the total joint surface. INDICATION: 26 year old male says he fell off of a forklift, sustaining an open trimalleolar ankle fracture. He was also pinned between the forklift and a wall, sustaining a complex laceration to his anterior tibia. He presented to [facility] ER for definitive management. He was given tetanus and antibiotics, and taken to the OR urgently. After the risks and benefits of surgery were explained , he was taken to surgery for wound exploration, excisional debridement, and operative stabilization of the fracture today. DESCRIPTION OF PROCEDURE: The patient was given a general anesthetic. He received preoperative antibiotics. A tourniquet was applied to the right thigh and after exsanguinating the leg with an eschmarch, the tourniquet was inflated to 250 mmHg. I first addressed the large laceration on the anterior surface of the tibia. I extended the laceration proximally and distally onto the anteromedial ankle to better visualize the medial malleolus fracture which was open. The wound was thoroughly irrigated with 6L of saline and cystoscopy tubing. Hair and debris were removed from the soft tissues. The tibial bone, periosteum, fascia, and subcutaneous tissue were excisionally debrided with a curette, ronguer, and knife back to a clean and bleeding surface. Surface vessels were coagulated. I performed an anteromedial approach to the ankle joint, and dissected down protecting the saphenous vein and nerve structures anteriorly. I incised the periosteum vertically and entered the ankle joint anteromedially. The medial malleolar fracture was then visualized. I used a periosteal elevator to expose the fracture margins. The medial malleolus fragment was decent-sized and I placed a k-wire to manipulate it into an anatomically reduced position. It was held there with a bone forceps. Another guidewire was placed posteriorly and divergently. I was then was able to overdrill and stabilize the fracture nicely with two 4.0 cannulated screws. There was good rotational stability as well. Anatomic reduction was obtained. The patient had expressed that he might not be compliant with his weight-bearing status post-operatively so I decided to reinforce the medial malleolus repair with a buttress plate. The distal anteromedial locking tibia plate was chosen and applied in an anti-glide manner to the medial tibia without any issues. I then approached the fibula directly centered on the fracture site with a posterolateral approach longitudinally. Dissection was carried down identifying the proximal portion of the peroneal tendon. I dissected just anterior to that muscle belly and exposed the fibula fracture longitudinally. This was basically a transverse fracture in the distal fibular metaphysis. I brought the fracture out to length and held the reduction with AO clamps until I obtained good overall position and episcopalian of length. I placed an 7-hole plate across the area, and could get 4 screws proximal and filled the locking holes distal to the fracture. The fracture was stabilized at this point and xrays were taken to reveal near anatomic alignment on both views. The fibula was out to length on the mortise view of the ankle. At that time I approached the lateral side of the joint and performed a cotton test with a clamp under flouro. The syndesmosis was found to be stable. Overall appearance of the ankle mortise was anatomic at that point. There was a posterior malleolus fragment that was visualized, but was less than 10% of the articular surface and I did not feel it needed to be stabilized. I then irrigated the incisions, as well as the traumatic wounds. The incisions were closed with with 2-0 Vicryl deep laterally and the skin with 3-0 monocryl and steris. Medially the skin was closed with 2-0 nylon interrupted horizontal mattress sutures. Both incisons were covered with sterile dressings, and a well padded posterior mold plaster cast with a u strip was applied. The patient tolerated the procedure well. There were no complications. He was taken to recovery in good condition postoperatively. Plan: The patient is to remain non-weightbearing on his RLE. Continue IV antibiotics for a full 24 hours. Continue to monitor his neurovascular status for compartment syndrome. Dvt prophylaxis. He will follow up in my office in 7- 10 days for staple removal and be transitioned into another cast vs a boot. ELENA ELIZONDO MD Jun 13, 2016 15:00
== END 2016-06-03 18:43 | disposition home or self-care (01) | DRG 465 ==
LOC: ER 16:41 → 4 NORTH 17:07
PROVIDERS: ADMIT Internal Medicine; ATTEND Internal Medicine
PROC: 0JBN0ZZ Excision of Right Lower Leg Subcutaneous Tissue and Fascia, Open Approach (ICD-10-PCS; 2016-06-02)
PROC: 0QSH04Z Reposition Left Tibia with Internal Fixation Device, Open Approach (ICD-10-PCS; 2016-06-02)
PROC: 0QSK04Z Reposition Left Fibula with Internal Fixation Device, Open Approach (ICD-10-PCS; principal; 2016-06-02 19:00)
DX: S82.851B Displaced trimalleolar fracture of right lower leg, initial encounter for open fracture type I or II (principal); W19.XXXA Unspecified fall, initial encounter; I10 Essential (primary) hypertension; F17.210 Nicotine dependence, cigarettes, uncomplicated; E11.9 Type 2 diabetes mellitus without complications; R26.2 Difficulty in walking, not elsewhere classified; S91.011A Laceration without foreign body, right ankle, initial encounter; Y93.89 Activity, other specified; Y92.89 Other specified places as the place of occurrence of the external cause; Y99.8 Other external cause status
CPT/HCPCS: 36415; 73590; 73610; 73630; 76001; 80048; 82306; 85027; 86850; 86900; 86901; 90471; 90715; 96374; 96375; 96376; A4215; C1713; J0690; J1100; J1170; J1885; J2405; J2704; J3010; J7030; J7120; 97116; 99291-25

== ENCOUNTER → 2016-07-23 | Outpatient (CLI) | payer OTHER ==
[2016-06-03 15:00] VITALS: BP 116/49
[~2016-07-23] MED LIST: ASPI325T11 PO; DEXT20CA7 PO; DOCU-27 PO; OXYC-323 PO; OXYC10TA PO
== END | disposition home or self-care (01) ==
LOC: LAB 10:39
PROVIDERS: ATTEND Orthopaedic Surgery
DX: S82.852 Displaced trimalleolar fracture of left lower leg (principal); W19.XXXA Unspecified fall, initial encounter; Y93.89 Activity, other specified; Y92.89 Other specified places as the place of occurrence of the external cause; Y99.8 Other external cause status
CPT/HCPCS: 36415; 82306